=== PATIENT | male | born 1935 | race Caucasian/White ===

== ENCOUNTER 2019-01-17 03:38 | Inpatient (IN) | payer MEDICARE ==
[~2019-01-17] VITALS: Ht 172.7 cm; Wt 68.0 kg
[2019-01-17] VITALS (53 sets, daily range): BP systolic 91–146; BP diastolic 31–80
[2019-01-17 06:42] LABS: BASOPHILS % 0.8 % (0.0-2.0); EOSINOPHILS % 2.1 % (0.0-5.0); HEMATOCRIT. 26.2 % (42.0-52.0); HEMOGLOBIN. 8.3 g/dL (14.0-18.0); LYMPHOCYTES % 12.7 % (20.0-50.0); MEAN CORPUSCULAR HEMOGLOBIN 25.5 pg (28.0-32.0); MEAN CORPUSCULAR VOLUME 80.4 fL (80.0-94.0); MEAN PLATELET VOLUME 9.4 fl (7.4-10.4); MONOCYTES % 9.8 % (2.0-8.0); NEUTROPHILS % 74.6 % (40.0-76.0); PLATELET 406 x1000/uL (130-400); RED BLOOD CELL COUNT 3.26 mill/uL (4.7-6.1); RED CELL DISTRIBUTION WIDTH 20.5 % (11.6-14.6)
[2019-01-17 06:50] LABS: CHLORIDE 108 mEq/L (98-107)
[2019-01-17 06:52] LABS: INR 1.1; PARTIAL THROMBOPLASTIN TIME 35.6 sec (23.4-31.0); PROTHROMBIN TIME 10.7 sec (9.1-11.1)
[2019-01-17 06:54] LABS: ETHANOL BLOOD < 10 mg/dL
[2019-01-17] MEDS ORDERED: LEVETIRACETAM 500MG PREMIX 100 ML IV ONE (07:30)
[2019-01-17] MEDS ORDERED: FUROSEMIDE 20MG/2ML VIAL IVP ONE (07:45)
[2019-01-17] MEDS: DEXT 5%/LACTATED RINGERS 1,000 ML IV SCH (10:03)
[2019-01-17] MEDS: LEVETIRACETAM 500 MG in SODIUM CHLORIDE 0.9% 100 ML IV SCH ×2 (13:22→20:42)
[2019-01-17] MEDS ORDERED: MORPHINE SULFATE 4 MG/ML CPJ (NOT FOR IM USE) IV PRN (13:30)
[2019-01-17] MEDS ORDERED: NICARDIPINE 100 MG in SODIUM CHLORIDE 0.9% 60 ML IV PRN (14:00)
[2019-01-17] MEDS ORDERED: SODIUM CHLORIDE 0.9% 500 ML IV ONE (15:45)
[2019-01-17] MEDS: PANTOPRAZOLE SODIUM 40 MG/VIAL IV SCH (16:38)
[2019-01-17] MEDS ORDERED: ACETAMINOPHEN 650MG SUPP PR PRN (17:45)
[2019-01-17 18:27] LABS: CLARITY URINE TURBID (CLEAR); COLOR URINE YELLOW (YELLOW); KETONES URINE NEGATIVE (NEGATIVE); LEUKOCYTE ESTERASE URINE 3+ (NEGATIVE); NITRITE URINE NEGATIVE (NEGATIVE); OCCULT BLOOD URINE 1+ (NEGATIVE); PROTEIN URINE TRACE (NEGATIVE); SPECIFIC GRAVITY URINE 1.011 (1.005-1.030); UROBILINOGEN URINE 0.2 E.U./dL (0.2-1.0)
[2019-01-17 18:40] LABS: *AMPHETAMINES SCREEN URINE PRESUMTIVE POSITIVE (NEGATIVE); *BARBITURATES SCREEN URINE NEGATIVE (NEGATIVE); *BENZODIAZEPINES SCREEN URINE NEGATIVE (NEGATIVE); *COCAINE SCREEN URINE NEGATIVE (NEGATIVE); METHADONE URINE SCREEN NEGATIVE (NEGATIVE)
[2019-01-17 18:41] LABS: CANNABINOID URINE SCREEN NEGATIVE (NEGATIVE); OPIATES URINE SCREEN NEGATIVE (NEGATIVE); PHENCYCLIDINE URINE SCREEN NEGATIVE (NEGATIVE)
[2019-01-17] MEDS: CEFTRIAXONE 1 G PREMIX 50 ML IV SCH (19:37)
[2019-01-18] VITALS (59 sets, daily range): BP systolic 78–173; BP diastolic 28–94
[2019-01-18] MEDS: DEXT 5%/LACTATED RINGERS 1,000 ML IV SCH ×2 (02:32→15:14)
[2019-01-18 09:30] LABS: PHOSPHORUS 2.8 mg/dL (2.5-4.9)
[2019-01-18] MEDS: LEVETIRACETAM 500 MG in SODIUM CHLORIDE 0.9% 100 ML IV SCH ×2 (09:43→20:35)
[2019-01-18] MEDS: PANTOPRAZOLE SODIUM 40 MG/VIAL IV SCH (09:43)
[2019-01-18 09:44] LABS: HEMATOCRIT. 25.8 % (42.0-52.0); MEAN CORPUSCULAR HEMOGLOBIN 25.7 pg (28.0-32.0); MEAN CORPUSCULAR VOLUME 82.4 fL (80.0-94.0); PLATELET 359 x1000/uL (130-400); RED BLOOD CELL COUNT 3.12 mill/uL (4.7-6.1); RED CELL DISTRIBUTION WIDTH 20.1 % (11.6-14.6)
[2019-01-18] MEDS ORDERED: TIMO5DRO32 EACHEYE (10:42)
[2019-01-18 14:16] LABS: PLATELET ESTIMATE NORMAL
[2019-01-18 18:51] LABS: VITAMIN B12 SERUM 355 pg/mL (211-911)
[2019-01-18] MEDS: CEFTRIAXONE 1 G PREMIX 50 ML IV SCH (19:48)
[2019-01-18] MEDS: TIMOLOL MALEATE 0.5% OPHTH DROPS 5ML EACHEYE SCH (20:35)
[2019-01-19] VITALS (27 sets, daily range): BP systolic 95–134; BP diastolic 35–56
[2019-01-19] MEDS: DEXT 5%/LACTATED RINGERS 1,000 ML IV SCH ×2 (01:26→17:27)
[2019-01-19 05:44] LABS: BASOPHILS % 0.6 % (0.0-2.0); EOSINOPHILS % 2.9 % (0.0-5.0); HEMATOCRIT. 21.4 % (42.0-52.0); LYMPHOCYTES % 18.2 % (20.0-50.0); MEAN CORPUSCULAR VOLUME 81.6 fL (80.0-94.0); MEAN PLATELET VOLUME 10.2 fl (7.4-10.4); NEUTROPHILS % 65.3 % (40.0-76.0); PLATELET 267 x1000/uL (130-400); RED BLOOD CELL COUNT 2.62 mill/uL (4.7-6.1); RED CELL DISTRIBUTION WIDTH 19.7 % (11.6-14.6)
[2019-01-19 06:13] LABS: HEMOGLOBIN. 6.8 g/dL (14.0-18.0); PHOSPHORUS 2.7 mg/dL (2.5-4.9)
[2019-01-19] MEDS: LEVETIRACETAM 500 MG in SODIUM CHLORIDE 0.9% 100 ML IV SCH ×2 (09:05→21:09)
[2019-01-19] MEDS: TIMOLOL MALEATE 0.5% OPHTH DROPS 5ML EACHEYE SCH ×2 (09:05→21:10)
[2019-01-19] MEDS: PANTOPRAZOLE SODIUM 40 MG/VIAL IV SCH (09:05)
[2019-01-19] MEDS ORDERED: LEVOTHYROXINE SODIUM 50MCG TABLET PO SCH (10:45)
[2019-01-19 15:55] LABS: TOTAL IRON BINDING CAPACITY 216 ug/dL (250-450)
[2019-01-19] MEDS ORDERED: CEFEPIME 1,000 MG in DEXTROSE 5% WATER 50 ML IV SCH (18:00)
[2019-01-20] VITALS: BP 113/46
[2019-01-20] MEDS: DEXT 5%/LACTATED RINGERS 1,000 ML IV SCH (01:14)
[2019-01-20 04:00] VITALS: BP 129/76
[2019-01-20 08:00] VITALS: BP 134/59
[2019-01-20] MEDS: LEVOTHYROXINE SODIUM 50MCG TABLET PO SCH (08:20)
[2019-01-20] MEDS: TIMOLOL MALEATE 0.5% OPHTH DROPS 5ML EACHEYE SCH ×2 (08:21→21:00)
[2019-01-20] MEDS ORDERED: FAMOTIDINE 20MG/2ML VIAL IV SCH (09:00)
[2019-01-20 09:44] LABS: HEMATOCRIT 28.7 % (42.0-52.0); HEMOGLOBIN 9.1 g/dL (14.0-18.0)
[2019-01-20] MEDS ORDERED: IRON SUCROSE COMPLEX 100 MG/5 ML ML IV SCH (11:00)
[2019-01-20 12:00] VITALS: BP 134/68
[2019-01-20 16:00] VITALS: BP 128/74
[2019-01-20] MEDS: CYANOCOBALAMIN 1000MCG/ML VIAL IM SCH (17:30)
[2019-01-20 20:00] VITALS: BP 148/67
[2019-01-20] MEDS: LEVETIRACETAM 500MG TABLET PO SCH (21:00)
[2019-01-21 00:09] VITALS: BP 116/72
[2019-01-21 04:00] VITALS: BP 114/51
[2019-01-21 08:00] VITALS: BP 123/60
[2019-01-21] MEDS: LEVETIRACETAM 500MG TABLET PO SCH (09:12)
[2019-01-21] MEDS: TIMOLOL MALEATE 0.5% OPHTH DROPS 5ML EACHEYE SCH (09:12)
[2019-01-21] MEDS: CYANOCOBALAMIN 1000MCG/ML VIAL IM SCH (09:12)
[2019-01-21] MEDS: LEVOTHYROXINE SODIUM 50MCG TABLET PO SCH (09:12)
[2019-01-21 12:00] VITALS: BP 99/48
[2019-01-21 15:38] VITALS: BP 123/60
[2019-01-21 16:00] VITALS: BP 100/56
== END 2019-01-21 18:38 | DRG 871 ==
LOC: ER 03:38 → ENRESERV 08:11 → MICUSO 08:58 → 7WST 01-19 10:19
PROVIDERS: ADMIT Internal Medicine Nephrology; ATTEND Internal Medicine Nephrology
PROC: 30233N1 Transfusion of Nonautologous Red Blood Cells into Peripheral Vein, Percutaneous Approach (ICD-10-PCS; principal; 2019-01-19)
DX: A41.9 Sepsis, unspecified organism (principal); E43 Unspecified severe protein-calorie malnutrition; I62.03 Nontraumatic chronic subdural hemorrhage; N13.6 Pyonephrosis; N17.9 Acute kidney failure, unspecified; G93.40 Encephalopathy, unspecified; R64 Cachexia; I13.0 Hypertensive heart and chronic kidney disease with heart failure and stage 1 through stage 4 chronic kidney disease, or unspecified chronic kidney disease; N18.4 Chronic kidney disease, stage 4 (severe); T43.621A Poisoning by amphetamines, accidental (unintentional), initial encounter; F19.129 Other psychoactive substance abuse with intoxication, unspecified; D50.9 Iron deficiency anemia, unspecified; E03.9 Hypothyroidism, unspecified; E86.0 Dehydration; D63.8 Anemia in other chronic diseases classified elsewhere; F15.129 Other stimulant abuse with intoxication, unspecified; H54.7 Unspecified visual loss; H91.90 Unspecified hearing loss, unspecified ear; J44.9 Chronic obstructive pulmonary disease, unspecified; K21.9 Gastro-esophageal reflux disease without esophagitis; K76.89 Other specified diseases of liver; M19.90 Unspecified osteoarthritis, unspecified site; R29.6 Repeated falls; R62.7 Adult failure to thrive; W18.30XA Fall on same level, unspecified, initial encounter; H26.9 Unspecified cataract; R26.9 Unspecified abnormalities of gait and mobility; B96.5 Pseudomonas (aeruginosa) (mallei) (pseudomallei) as the cause of diseases classified elsewhere; Z68.22 Body mass index [BMI] 22.0-22.9, adult; Y93.89 Activity, other specified; Y92.89 Other specified places as the place of occurrence of the external cause; Y99.8 Other external cause status; Z59.0 Homelessness; Z91.19 Patient's noncompliance with other medical treatment and regimen
CPT/HCPCS: 36415; 70551; 71045; 72070; 74181; 80048; 80305; 80307; 80320; 80329; 82607; 82728; 83540; 83550; 83735; 83880; 84100; 84443; 84484; 85007; 85014; 85018; 85027; 86850; 86900; 86920; 87077; 87186; 92610; 93005; 93970; 96365; 96375; 97116; 97162; 97166; 97535; 99291; A6261; C1893; C9113; J0692; J0696; J1940; J1953; J3420; J3490; J7040; J7050; J7060; J7121; P9016; A4315; G0480